=== PATIENT | male | born 1985 | race American Indian/Alaskan Native ===

== ENCOUNTER 2018-11-24 02:01 | Emergency (ER) | payer SELFPAY ==
[2018-11-24 02:12] VITALS: BP 134/90
--- NOTE | 2018-11-24 03:21 | Emergency Department Report ---
ED General Adult HPI - General Chief complaint: Headache Stated complaint: HEADACHE/FOOT PAIN Time Seen by Provider: 11/24/18 03:10 Source: patient Mode of arrival: Ambulatory Limitations: No Limitations - History of Present Illness Initial comments: Patient's a 33-year-old -Eritrean male with history of hypertension and headaches and bilateral foot pain who presents for right frontal headache and bilateral foot pain 1 week this episode patient has not taken [id number] NSAIDs for pain pain is 4/10 pain exacerbated by activity pain is relieved by rest there is no decreased vision no nausea vomiting no back pain no neck pain no fever chills. Onset/Timin -: week(s) Location: head (right frontal ), lower extremity (bilat foot pain) Radiation: non-radiation Severity scale (0 -10): 4 Quality: aching Consistency: intermittent Improves with: rest Worsens with: movement, other (activity ) Associated Symptoms: headaches Treatments Prior to Arrival: none - Related Data Previous Rx's Medication Instructions Recorded Last Taken Type Acetaminophen [Non-Aspirin Extra 1,000 mg PO Q6H PRN #30 tablet 11/24/18 Unknown Rx Strength] Allergies Allergy/AdvReac Type Severity Reaction Status Date / Time No Known Allergies Allergy Unverified 11/24/18 02:12 ED Review of Systems ROS: Stated complaint: HEADACHE/FOOT PAIN Other details as noted in HPI Constitutional: denies: chills, fever, malaise, weakness Eyes: denies: eye pain, eye discharge, vision change ENT: denies: ear pain, throat pain, congestion Respiratory: denies: cough, shortness of breath, wheezing Cardiovascular: denies: chest pain, palpitations Endocrine: no symptoms reported Gastrointestinal: denies: abdominal pain, nausea, diarrhea Genitourinary: denies: urgency, dysuria Musculoskeletal: other (bilat foot pain generalized ). denies: back pain, joint swelling, arthralgia Skin: denies: rash, lesions Neurological: headache. denies: weakness, numbness, paresthesias, confusion, abnormal gait Psychiatric: denies: anxiety, depression Hematological/Lymphatic: denies: easy bleeding, easy bruising ED Past Medical Hx - Past Medical History Previous Medical History?: No - Surgical History Past Surgical History?: No - Social History Smoking Status: Current Every Day Smoker Substance Use Type: Alcohol - Medications Home Medications: Home Medications Medication Instructions Recorded Confirmed Last Taken Type Acetaminophen [Non-Aspirin Extra 1,000 mg PO Q6H PRN #30 tablet 11/24/18 Unknown Rx Strength] ED Physical Exam - General Limitations: No Limitations General appearance: alert, in no apparent distress - Head Head exam: Present: atraumatic, normocephalic, normal inspection - Eye Eye exam: Present: normal appearance, PERRL, EOMI. Absent: conjunctival injection, nystagmus Pupils: Present: normal accommodation - ENT ENT exam: Present: normal orophraynx, mucous membranes moist, TM's normal bilaterally, normal external ear exam - Neck Neck exam: Present: normal inspection, full ROM. Absent: tenderness, meningismus, lymphadenopathy, thyromegaly - Respiratory Respiratory exam: Present: normal lung sounds bilaterally. Absent: respiratory distress, wheezes, stridor, chest wall tenderness - Cardiovascular Cardiovascular Exam: Present: regular rate, normal rhythm, normal heart sounds. Absent: systolic murmur, diastolic murmur, rubs, gallop - GI/Abdominal GI/Abdominal exam: Present: soft, normal bowel sounds. Absent: distended, tenderness, bruit, hernia - Rectal Rectal exam: Present: deferred - Extremities Exam Extremities exam: Present: normal inspection - Back Exam Back exam: Present: normal inspection, full ROM. Absent: tenderness, CVA tenderness (R), CVA tenderness (L), vertebral tenderness, rash noted - Neurological Exam Neurological exam: Present: alert, oriented X3 - Expanded Neurological Exam Expanded Neurological exam: Absent: ataxia Patient oriented to: Present: person, place, time Speech: Present: fluid speech Cranial nerves: EOM's Intact: Normal, Tongue Deviation: Normal, Nystagmus: Normal, Facial Sensation: Normal Cerebellar function: Finger to Nose: Normal, Heel to Rodriguez: Normal Upper motor neuron: Jero Neglect: Normal, Pronator Drift: Normal Motor strength exam: RUE: 5, LUE: 5, RLE: 5, LLE: 5 DTR: bicep (R): 2+, bicep (L): 2+, ankle (R): 2+, ankle (L): 2+ Best Eye Response (Julien): (4) open spontaneously Best Motor Response (Julien): (6) obeys commands Best Verbal Response (Ujlien): (5) oriented Romney Total: 15 - Psychiatric Psychiatric exam: Present: normal affect, normal mood - Skin Skin exam: Present: warm, dry, intact, normal color. Absent: rash ED Course Vital Signs 11/24/18 02:09 Temperature 98.2 F Pulse Rate 82 Respiratory 18 Rate Blood Pressure 134/90 O2 Sat by Pulse 97 Oximetry ED Medical Decision Making - Medical Decision Making pt relieved at this time , plan nsaids prn follow up with pcp in 2-3 days pt given referral to [facility] , pt dc'd to home in stable condition at this time. Critical care attestation.: If time is entered above; I have spent that time in minutes in the direct care of this critically ill patient, excluding procedure time. ED Disposition Clinical Impression: Headache Qualifiers: Headache type: unspecified Headache chronicity pattern: acute headache Intractability: not intractable Qualified Code(s): R51 - Headache Disposition: DC-01 TO HOME OR SELFCARE Is pt being admited?: No Does the pt Need Aspirin: No Condition: Stable Instructions: Acute Headache (ED) Prescriptions: Acetaminophen [Non-Aspirin Extra Strength] 1,000 mg PO Q6H PRN #30 tablet PRN Reason: Headache Pain Referrals: PRIMARY CAREMD [Primary Care Provider] - 3-5 Days [facility] [Outside] - 3-5 Days Forms: Work/School Release Form(ED) Time of Disposition: :29
[2018-11-24] MEDS ORDERED: ACETAMINOPHEN 500 MG TAB PO ONE (05:26)
== END 2018-11-24 05:48 | disposition home or self-care (01) ==
LOC: ED 02:01
DX: R51 Headache (principal); M79.671 Pain in right foot; M79.672 Pain in left foot

== ENCOUNTER 2019-10-01 21:55 | Emergency (ER) | payer SELFPAY ==
[2019-10-01] MEDS ORDERED: SODIUM CHLORIDE 0.9% 1000 ML 1,000 ML IV ONE ×2 (21:59→23:19)
--- NOTE | 2019-10-01 22:12 | Emergency Department Report ---
HPI - HPI HPI: This is a 33-year-old -Mongolian male presents to the emergency department via EMS and PD from a local motel with excited delirium. 911 was called by the field clerk due to the patient's erratic behavior. EMS says that the patient was relatively calm and appropriate in route but then suddenly started yelling and becoming more nonsensical. At different points upon arrival the patient has said that he is "Jerald", "the devil", and has said "people have holes in the middle of them." He did not receive any medication for his symptoms prior to arrival. The patient has been here 1 time previously and appears to have a history of hypertension. He was last seen for headaches and bilateral foot pain in 2019. <ARIS MATIAS - Last Filed: 10/02/19 03:58> <REINALDO STORY - Last Filed: 10/02/19 13:35> - General Time Seen by Provider: 10/01/19 21:59 ED Past Medical Hx - Past Medical History Previous Medical History?: No Additional medical history: Unable to obtain - Surgical History Additional Surgical History: Unable to obtain - Social History Smoking Status: Current Every Day Smoker Substance Use Type: Alcohol <ARIS MATIAS - Last Filed: 10/02/19 03:58> <REINALDO STORY - Last Filed: 10/02/19 13:35> - Medications Home Medications: Home Medications Medication Instructions Recorded Confirmed Last Taken Type Acetaminophen [Non-Aspirin Extra 1,000 mg PO Q6H PRN #30 tablet 11/24/18 Unknown Rx Strength] ED Review of Systems ROS: Stated complaint: AMS Other details as noted in HPI Comment: Unobtainable due to pts medical conditions <ARIS MATIAS - Last Filed: 10/02/19 03:58> ROS: Stated complaint: AMS Other details as noted in HPI <REINALDO STORY - Last Filed: 10/02/19 13:35> Physical Exam - Physical Exam Physical Exam: GENERAL: The patient is well-developed well-nourished. HENT: Normocephalic. Atraumatic. Patient has moist mucous membranes. EYES: Extraocular motions are intact. NECK: Supple. Trachea is midline. CHEST/LUNGS: Clear to auscultation. There is no respiratory distress noted. HEART/CARDIOVASCULAR: Regular. There is moderate tachycardia. There is no murmur. ABDOMEN: Abdomen is soft, nontender. Patient has normal bowel sounds. There is no abdominal distention. SKIN: Patient is diaphoretic. NEURO: The patient is awake, but is not cooperative. Normal speech. MUSCULOSKELETAL: There is no tenderness or deformity. There is no limitation range of motion. PSYCH: The patient is agitated and exhibiting some acute psychosis <ARIS MATIAS - Last Filed: 10/02/19 03:58> - Physical Exam Vital Signs: Vital Signs 10/01/19 10/01/19 10/01/19 22:12 22:18 22:30 Pulse Rate 128 H 105 H Respiratory 18 26 H Rate Blood Pressure 155/136 155/136 Blood Pressure [Right] O2 Sat by Pulse 97 68 L 96 Oximetry 10/01/19 10/01/19 10/01/19 23:04 23:16 23:30 Pulse Rate 94 H 92 H 88 Respiratory 22 22 20 Rate Blood Pressure 134/78 134/78 133/78 Blood Pressure [Right] O2 Sat by Pulse 96 97 97 Oximetry 10/01/19 10/01/19 10/02/19 23:45 23:56 00:00 Pulse Rate 87 86 83 Respiratory 21 17 19 Rate Blood Pressure 120/72 115/74 Blood Pressure 120/72 [Right] O2 Sat by Pulse 97 99 98 Oximetry 10/02/19 10/02/19 10/02/19 00:15 00:30 00:45 Pulse Rate 82 79 78 Respiratory 20 18 19 Rate Blood Pressure 112/75 127/79 120/74 Blood Pressure [Right] O2 Sat by Pulse 97 97 97 Oximetry 10/02/19 10/02/19 10/02/19 01:00 01:15 01:30 Pulse Rate 77 72 72 Respiratory 19 17 17 Rate Blood Pressure 112/70 126/79 122/75 Blood Pressure [Right] O2 Sat by Pulse 98 98 98 Oximetry 10/02/19 10/02/19 10/02/19 01:45 02:00 02:15 Pulse Rate 70 69 64 Respiratory 17 17 17 Rate Blood Pressure 117/74 118/72 116/72 Blood Pressure [Right] O2 Sat by Pulse 99 99 Oximetry 10/02/19 10/02/19 10/02/19 02:30 02:45 03:00 Pulse Rate 62 61 62 Respiratory 16 17 16 Rate Blood Pressure 122/75 124/80 119/76 Blood Pressure [Right] O2 Sat by Pulse 100 100 Oximetry 10/02/19 10/02/19 10/02/19 03:15 03:30 03:45 Pulse Rate 66 63 65 Respiratory 16 15 17 Rate Blood Pressure 130/77 121/79 122/77 Blood Pressure [Right] O2 Sat by Pulse 98 99 100 Oximetry 10/02/19 10/02/19 10/02/19 04:00 04:15 04:30 Pulse Rate 62 62 59 L Respiratory 16 16 20 Rate Blood Pressure 122/77 132/79 127/88 Blood Pressure [Right] O2 Sat by Pulse 100 99 100 Oximetry 10/02/19 10/02/19 10/02/19 04:33 04:45 05:00 Pulse Rate 62 61 Respiratory 16 17 14 Rate Blood Pressure 110/69 121/77 Blood Pressure [Right] O2 Sat by Pulse 98 97 Oximetry 10/02/19 10/02/19 10/02/19 05:15 05:30 05:45 Pulse Rate 61 61 65 Respiratory 17 19 20 Rate Blood Pressure 112/69 114/63 112/63 Blood Pressure [Right] O2 Sat by Pulse 100 100 100 Oximetry 10/02/19 10/02/19 10/02/19 06:00 06:15 06:31 Pulse Rate 64 62 57 L Respiratory 19 18 13 Rate Blood Pressure 105/61 140/91 140/91 Blood Pressure [Right] O2 Sat by Pulse 100 100 97 Oximetry 10/02/19 10/02/19 10/02/19 06:45 06:48 07:00 Pulse Rate 74 62 57 L Respiratory 20 16 12 Rate Blood Pressure 140/91 143/93 Blood Pressure 137/89 [Right] O2 Sat by Pulse 100 100 100 Oximetry 10/02/19 10/02/19 10/02/19 07:15 07:31 07:45 Pulse Rate 85 66 61 Respiratory 22 10 L 16 Rate Blood Pressure 151/103 151/103 158/104 Blood Pressure [Right] O2 Sat by Pulse 100 79 L 89 Oximetry 10/02/19 10/02/19 10/02/19 08:01 08:15 08:30 Pulse Rate 58 L 63 65 Respiratory 14 18 18 Rate Blood Pressure 140/93 140/95 139/90 Blood Pressure [Right] O2 Sat by Pulse 96 100 100 Oximetry 10/02/19 10/02/19 10/02/19 08:45 09:00 09:15 Pulse Rate 69 65 58 L Respiratory 22 22 17 Rate Blood Pressure 134/81 132/82 133/88 Blood Pressure [Right] O2 Sat by Pulse 100 100 Oximetry 10/02/19 10/02/19 10/02/19 09:30 09:45 10:01 Pulse Rate 63 60 72 Respiratory 18 16 14 Rate Blood Pressure 135/93 144/89 124/77 Blood Pressure [Right] O2 Sat by Pulse 100 100 98 Oximetry 10/02/19 10/02/19 10:15 10:31 Pulse Rate Respiratory 11 L 13 Rate Blood Pressure 124/77 133/77 Blood Pressure [Right] O2 Sat by Pulse 100 99 Oximetry <REINALDO STORY - Last Filed: 10/02/19 13:35> ED Course - Reevaluation(s) Reevaluation #1: 10/02/19 04:00 Patient is now easily arousable from the Geodon and Ativan he was given for sedation and/or treatment of his psychosis. The patient appears much more calm and appropriate at this time. He is oriented to person, place, time. He is not forthcoming regarding any illicit drugs used and says that he is unaware of what transpired this evening at the [facility]. At this point the patient is medically cleared and will be seen by the psychiatric assessment team in the morning. <ARIS MATIAS - Last Filed: 10/02/19 03:58> Vital Signs 10/01/19 10/01/19 10/01/19 22:12 22:18 22:30 Pulse Rate 128 H 105 H Respiratory 18 26 H Rate Blood Pressure 155/136 155/136 Blood Pressure [Right] O2 Sat by Pulse 97 68 L 96 Oximetry 10/01/19 10/01/19 10/01/19 23:04 23:16 23:30 Pulse Rate 94 H 92 H 88 Respiratory 22 22 20 Rate Blood Pressure 134/78 134/78 133/78 Blood Pressure [Right] O2 Sat by Pulse 96 97 97 Oximetry 10/01/19 10/01/19 10/02/19 23:45 23:56 00:00 Pulse Rate 87 86 83 Respiratory 21 17 19 Rate Blood Pressure 120/72 115/74 Blood Pressure 120/72 [Right] O2 Sat by Pulse 97 99 98 Oximetry 10/02/19 10/02/19 10/02/19 00:15 00:30 00:45 Pulse Rate 82 79 78 Respiratory 20 18 19 Rate Blood Pressure 112/75 127/79 120/74 Blood Pressure [Right] O2 Sat by Pulse 97 97 97 Oximetry 10/02/19 10/02/19 10/02/19 01:00 01:15 01:30 Pulse Rate 77 72 72 Respiratory 19 17 17 Rate Blood Pressure 112/70 126/79 122/75 Blood Pressure [Right] O2 Sat by Pulse 98 98 98 Oximetry 10/02/19 10/02/19 10/02/19 01:45 02:00 02:15 Pulse Rate 70 69 64 Respiratory 17 17 17 Rate Blood Pressure 117/74 118/72 116/72 Blood Pressure [Right] O2 Sat by Pulse 99 99 Oximetry 10/02/19 10/02/19 10/02/19 02:30 02:45 03:00 Pulse Rate 62 61 62 Respiratory 16 17 16 Rate Blood Pressure 122/75 124/80 119/76 Blood Pressure [Right] O2 Sat by Pulse 100 100 Oximetry 10/02/19 10/02/19 10/02/19 03:15 03:30 03:45 Pulse Rate 66 63 65 Respiratory 16 15 17 Rate Blood Pressure 130/77 121/79 122/77 Blood Pressure [Right] O2 Sat by Pulse 98 99 100 Oximetry 10/02/19 10/02/19 10/02/19 04:00 04:15 04:30 Pulse Rate 62 62 59 L Respiratory 16 16 20 Rate Blood Pressure 122/77 132/79 127/88 Blood Pressure [Right] O2 Sat by Pulse 100 99 100 Oximetry 10/02/19 10/02/19 10/02/19 04:33 04:45 05:00 Pulse Rate 62 61 Respiratory 16 17 14 Rate Blood Pressure 110/69 121/77 Blood Pressure [Right] O2 Sat by Pulse 98 97 Oximetry 10/02/19 10/02/19 10/02/19 05:15 05:30 05:45 Pulse Rate 61 61 65 Respiratory 17 19 20 Rate Blood Pressure 112/69 114/63 112/63 Blood Pressure [Right] O2 Sat by Pulse 100 100 100 Oximetry 10/02/19 10/02/19 10/02/19 06:00 06:15 06:31 Pulse Rate 64 62 57 L Respiratory 19 18 13 Rate Blood Pressure 105/61 140/91 140/91 Blood Pressure [Right] O2 Sat by Pulse 100 100 97 Oximetry 10/02/19 10/02/19 10/02/19 06:45 06:48 07:00 Pulse Rate 74 62 57 L Respiratory 20 16 12 Rate Blood Pressure 140/91 143/93 Blood Pressure 137/89 [Right] O2 Sat by Pulse 100 100 100 Oximetry 10/02/19 10/02/19 10/02/19 07:15 07:31 07:45 Pulse Rate 85 66 61 Respiratory 22 10 L 16 Rate Blood Pressure 151/103 151/103 158/104 Blood Pressure [Right] O2 Sat by Pulse 100 79 L 89 Oximetry 10/02/19 10/02/19 10/02/19 08:01 08:15 08:30 Pulse Rate 58 L 63 65 Respiratory 14 18 18 Rate Blood Pressure 140/93 140/95 139/90 Blood Pressure [Right] O2 Sat by Pulse 96 100 100 Oximetry 10/02/19 10/02/19 10/02/19 08:45 09:00 09:15 Pulse Rate 69 65 58 L Respiratory 22 22 17 Rate Blood Pressure 134/81 132/82 133/88 Blood Pressure [Right] O2 Sat by Pulse 100 100 Oximetry 10/02/19 10/02/19 10/02/19 09:30 09:45 10:01 Pulse Rate 63 60 72 Respiratory 18 16 14 Rate Blood Pressure 135/93 144/89 124/77 Blood Pressure [Right] O2 Sat by Pulse 100 100 98 Oximetry 10/02/19 10/02/19 10:15 10:31 Pulse Rate Respiratory 11 L 13 Rate Blood Pressure 124/77 133/77 Blood Pressure [Right] O2 Sat by Pulse 100 99 Oximetry <REINALDO STORY - Last Filed: 10/02/19 13:35> ED Medical Decision Making - Lab Data Result diagrams: 10/01/19 22:35 10/01/19 22:35 - EKG Data -: EKG Interpreted by [place] EKG shows normal: sinus rhythm, axis (Left axis deviation), intervals, QRS complexes, ST-T waves Rate: normal - EKG Data When compared to previous EKG there are: previous EKG unavailable Interpretation: other (Sinus rhythm at 70 bpm, left axis deviation, normal intervals, no ST elevation MS) - Medical Decision Making Initially this patient presented [place] local [place] with some excited delirium. He was given some Geodon and Ativan and eventually was resting comfortably. CT scan of the head did not show any bleed, shift, mass, ischemia, or any other acute process. Patient's labs show some mild hypokalemia with a potassium of 3, mild renal insufficiency with a GFR of 44, a slightly elevated CK level, and a urine drug screen positive for amphetamines. EKG did not show any signs of ST elevation MS or any dysrhythmia. Patient was given multiple liters of IV fluid. He was reevaluated multiple times over multiple hours and the patient is much more calm and appropriate at this time. He is easily arousable, oriented to person, place, time. He does not have any focal, motor or sensory deficits and cranial nerves are intact. Patient admits to methamphetamine use this evening. At this time the vital signs are within normal limits. The patient will be seen by the psychiatric screen maker in the morning. Patient is medically cleared. <ARIS MATIAS - Last Filed: 10/02/19 03:58> - Lab Data Result diagrams: 10/01/19 22:35 10/02/19 12:17 - Medical Decision Making Patient is 33 years old male with no significant past medical history. Patient admitted to the ER yesterday after patient presented with possibly drug-induced psychosis. Patient is positive for methamphetamine. Patient currently is alert, oriented x3 in no acute distress. Patient denied any suicidal or homicidal ideation. Patient also denied any visual or auditory hallucination. Repeated chemistry profile showed resolved kidney function impairment with a current creatinine of 1.3. Patient has been assessed by our psychiatric team and advised patient to be discharged and follow-up as an outpatient. Patient is medically and psychiatrically cleared for discharge. Patient given local resources for help. <REINALDO STORY - Last Filed: 10/02/19 13:35> Critical Care Time: No Critical care attestation.: If time is entered above; I have spent that time in minutes in the direct care of this critically ill patient, excluding procedure time. <ARIS MATIAS - Last Filed: 10/02/19 03:58> Critical care attestation.: If time is entered above; I have spent that time in minutes in the direct care of this critically ill patient, excluding procedure time. <REINALDO STORYDilan - Last Filed: 10/02/19 13:35> ED Disposition <ARIS MATIAS - Last Filed: 10/02/19 03:58> Is pt being admited?: No <REINALDO STORY - Last Filed: 10/02/19 13:35> Clinical Impression: Methamphetamine abuse, Mild renal insufficiency, Dehydration, Hypokalemia, Drug-induced psychotic disorder Disposition: DC-01 TO HOME OR SELFCARE Condition: Stable Instructions: Dehydration (ED), Hypokalemia (ED), Methamphetamine Abuse (ED), Impaired Kidney Function (ED) Additional Instructions: In case of an emergency, please contact the following numbers: [place] Crisis and Access Line: Number: Crisis Text Line: (Text START) Number: [id number] Suicide Prevention Line: Number: Emergency Number: 911 SUBSTANCE ABUSE PROGRAMS: [facility]: Location: [place] [facility] Address: [address] [place] [address] [facility]: Address: [address] [place] [address] [facility]: Address: [address] [place] [address] [facility] Community: Address: [address] [place] [address] [facility] Address: [address] [place] [id number]. Please contact above numbers to attempt placement into free based program. Medicaid Programs: [facility]: Address: [address] [place] [address] [facility]: Address: [address] [place] [id number] Referrals: PRIMARY MD PREM [Primary Care Provider] - 3-5 Days ZAYDA FORD MD [Staff Physician] - 3-5 Days ANNE MCGRATH MD [Staff Physician] - 3-5 Days [facility] [Provider Group] - 3-5 Days
[2019-10-01 22:57] LABS: Basophils % (Auto) 0.7 % (0.0-1.8); Eosinophils # (Auto) 0.1 K/mm3 (0.0-0.4); Lymphocytes # (Auto) 0.6 K/mm3 (1.2-5.4); Lymphocytes % (Auto) 10.4 % (13.4-35.0); Mean Corpuscular HGB Conc 36 % (32-34); Mean Corpuscular Volume 90 fl (84-94); Monocytes # (Auto) 0.6 K/mm3 (0.0-0.8); Monocytes % (Auto) 8.9 % (0.0-7.3); Platelet Count 267 K/mm3 (140-440); Red Blood Count 4.65 M/mm3 (3.65-5.03); Red Cell Distribution Width 13.1 % (13.2-15.2)
[2019-10-01 23:13] LABS: Albumin 4.4 g/dL (3.9-5); Calcium 9.2 mg/dL (8.4-10.2)
--- NOTE | 2019-10-01 23:16 | Cat Scan Report ---
CT head/brain wo con INDICATION / CLINICAL INFORMATION: Altered Mental Status. TECHNIQUE: All CT scans at this location are performed using CT dose reduction for ALARA by means of automated e xposure control. COMPARISON: None available. FINDINGS: Ventricle size is normal. No mass or mass effect is seen. There is no evidence of intracranial hemorr nafisa. No obvious area of infarction is identified. Visualized portions of the paranasal sinuses are c lear. IMPRESSION: No acute findings Signer Name: Mat Mitchell MD FACR Signed: 10/01/2019 11:12 PM Workstation Name: [id number]
[2019-10-01 23:19] LABS: Hemoglobin 15.3 gm/dl (11.8-15.2)
[2019-10-01 23:20] LABS: Hematocrit 42.1 % (35.5-45.6)
[2019-10-01] MEDS: POTASSIUM CHLORIDE 10 MEQ 10 MEQ/100 ML BAG IV SCH (23:30)
[2019-10-01 23:31] LABS: Bilirubin,Urine NEG (Negative); Blood,Urine NEG (Negative); Color,Urine Amber (Yellow); Mucus,Urine FEW /HPF
[2019-10-01 23:39] LABS: Amphetamine Screen,Urine PRESUMPTIVE POSITIVE; Benzodiazepines Screen,Urine PRESUMPTIVE NEGATIVE; Cannabinoid Screen,Urine PRESUMPTIVE NEGATIVE; Cocaine Screen,Urine PRESUMPTIVE NEGATIVE; Methadone Screen,Urine PRESUMPTIVE NEGATIVE; Opiate Screen,Urine PRESUMPTIVE NEGATIVE
[2019-10-02] MEDS: POTASSIUM CHLORIDE 10 MEQ 10 MEQ/100 ML BAG IV SCH (00:30)
[2019-10-02] MEDS ORDERED: SODIUM CHLORIDE 0.9% 1000 ML 1,000 ML ONE (02:29)
[2019-10-02] MEDS ORDERED: SODIUM CHLORIDE 0.9% 1000 ML 1,000 ML IV SCH (02:30)
[2019-10-02 11:35] VITALS: BP 133/77
[2019-10-02 13:21] LABS: BUN/Creatinine Ratio 13; Blood Urea Nitrogen 17 mg/dL (9-20); Calcium 8.7 mg/dL (8.4-10.2); Hemolysis Index 6
== END 2019-10-02 13:40 | disposition home or self-care (01) ==
LOC: ED 21:55
DX: F15.10 Other stimulant abuse, uncomplicated (principal); R19.7 Diarrhea, unspecified; E87.6 Hypokalemia; N28.9 Disorder of kidney and ureter, unspecified; F19.90 Other psychoactive substance use, unspecified, uncomplicated; F17.200 Nicotine dependence, unspecified, uncomplicated; Z79.899 Other long term (current) drug therapy
CPT/HCPCS: 36415; 70450; 80048; 80053; 80307; 81001; 82550; 84443; 85025; 93005; 96361; 96365; 96366; 99285; J3480; J7030; 80320; G0480